=== PATIENT | female | born 1975 | race Caucasian/White ===

== ENCOUNTER 2018-04-09 21:42 | Emergency (ER) | payer BC ==
[~2018-04-09] VITALS: Ht 172.7 cm; Wt 93.9 kg
[2018-04-09 21:51] VITALS: Ht 172.7 cm; Wt 93.9 kg
[2018-04-09 23:22] VITALS: BP 135/80
== END 2018-04-09 23:22 | disposition home or self-care (01) ==
LOC: ED 21:42
DX: L50.9 Urticaria, unspecified (principal); R06.02 Shortness of breath
CPT/HCPCS: J2930